=== PATIENT | female | born 2000 ===

== ENCOUNTER → 2018-03-27 15:24 | Outpatient (REF) | payer OTHER, SELFPAY ==
[2018-03-27 16:19] LABS: Add Manual Diff / Slide Review NO; Basophils Percent Auto 0.2 % (0-2); Hematocrit 35.2 % (36-46); Hemoglobin 11.5 g/dL (12.0-16.0); Lymphocytes Percent Auto 27.9 % (25-40); Mean Corpuscular HGB Conc 32.5 % (30-36); Mean Corpuscular Hemoglobin 23.9 PG (26-34); Mean Corpuscular Volume 73.4 fL (80-100); Monocytes Percent Auto 8.8 % (3-14); Neutrophils Absolute Auto 3600 /uL (3000-5900); Neutrophils Percent Auto 63.1 % (50-75); Platelet Count 214 X10^3/uL (150-400); Red Cell Distribution Width 20.4 % (11.6-14.8); White Blood Cell Count 5.6 X10^3/uL (4.5-11.0)
[2018-03-27 16:30] LABS: Hemoglobin A1C% w Est Avg Glu 5.2 % (4.0-6.0)
[2018-03-27 16:49] LABS: HEMOLYSIS < 15 (0-50); Iron 76 ug/dL (37-170)
[2018-03-27 16:50] LABS: Microcytosis 2+; Polychromasia 1+
[2018-03-27 16:52] LABS: Alanine Aminotransferase 41 IU/L (9-52); Albumin 3.6 g/dL (3.5-5.0); Albumin Globulin Ratio 1.3 (1.0-2.8); Alkaline Phosphatase 48 U/L (38-126); Aspartate Aminotransferase 90 IU/L (14-36); Bilirubin Total 0.5 mg/dL (0.2-1.3); Blood Urea Nitrogen 12 mg/dL (7-17); Carbon Dioxide 27 mmol/L (22-32); Chloride 106 mmol/L (98-107); Cholesterol 180 mg/dL (140-199); Estimated Glomerular Filt Rate > 60.0 mL/min (>60); Globulin 2.8 g/dL (1.7-4.1); Glucose 102 mg/dL (70-100); HDL Cholesterol 57 mg/dL (40-60); HEMOLYSIS < 15 (0-50); LDL Cholesterol Calculated 91 mg/dL (<100); Magnesium 1.9 mg/dL (1.6-2.3); Potassium 4.4 mmol/L (3.4-5.1); Sodium 142 mmol/L (137-145); Total Protein 6.4 g/dL (6.3-8.2); Triglycerides 160 mg/dL (35-150)
[2018-03-27 17:02] LABS: Vitamin D 25 Hydroxy (D3) 58.2 ng/mL (30.0-100.0)
[2018-03-27 17:03] LABS: Percent Iron Saturation 19 % (15-50); Total Iron Binding Capacity 399 ug/dL (265-497); Transferrin 338 mg/dL (206-381)
[2018-03-27 17:08] LABS: Free T3, Triiodothyronine Free 4.04 pg/mL (2.77-5.27); Free T4, Direct Thyroxine 1.38 ng/dL (0.78-2.19); Triiodothryronine T3 Uptake 28.2 % (23.5-40.5)
[2018-03-27 17:21] LABS: Thyroid Stimulating Hormone < 0.02 uIU/mL (0.47-4.68)
[2018-03-27 17:25] LABS: Cortisol AM (Before 10AM) 22.2 ug/dL (4.46-22.7)
[2018-03-27 17:28] LABS: Ferritin 5.4 ng/mL (6.27-137)
[2018-03-27 17:43] LABS: Vitamin B12 403 pg/mL (239-931)
[2018-03-29 13:37] LABS: Anti Thyroglobulin Antibody 5 IU/mL (< 2); Thyroid Peroxidase Antibodies 266 IU/mL (< 9)
[2018-03-29 13:54] LABS: EBV Virus IgM Ab < 36.00 U/mL (< 36.00); EVB Early IgG < 9.00 U/mL (< 9.00)
[2018-03-29 13:56] LABS: CMV IgG Antibody < 0.60 U/mL (< 0.60); CMV IgM Antibody < 30.00 AU/mL (< 30.00)
[2018-03-29 17:00] LABS: Dehydroepiandrosterone Sulfate 88 mcg/dL (51-321)
[2018-03-30 16:08] LABS: Anti Gliadin IgG Ab 5 U (<20); Gliadin Gluten IgA 7 U (<20)
[2018-04-01 13:18] LABS: Triiodothyronine T3 Reverse 26 ng/dL (8-25)
[2018-04-02 08:25] LABS: Magnesium, RBC 3.6 mg/dL (4.0-6.4)
== END ==
LOC: LAB 15:24
PROVIDERS: Visit Provider Naturopath
DX: R53.83 Other fatigue (principal); M25.562 Pain in left knee; K58.0 Irritable bowel syndrome with diarrhea; M62.81 Muscle weakness (generalized)
CPT/HCPCS: 36415; 80053; 80061; 82306; 82533; 82607; 82627; 82728; 83036; 83520; 83540; 83550; 83735; 84439; 84443; 84479; 84481; 84482; 85025; 86376; 86644; 86645; 86663; 86664; 86665; 86800